=== PATIENT | male | born 1960 | race Caucasian/White ===

== ENCOUNTER 2018-12-24 23:33 | Emergency (ER) | payer BC, OTHER ==
[~2018-12-24] VITALS: Ht 185.4 cm; Wt 90.7 kg
[2018-12-25 01:13] LABS: Basophils # (auto) 0.1 uL; Basophils % (auto) 0.8 % (0.0-2.0); Eosinophils # (auto) 0.1 uL; Eosinophils % (auto) 1.4 % (0.0-7.0); Hematocrit 39.9 % (41.0-53.0); Lymphocytes # (auto) 2.2 uL; Lymphocytes % (auto) 22.5 % (10.0-50.0); Mean Corpuscular Hgb Conc. 35.1 g/dL (32.0-36.0); Mean Corpuscular Volume 85.6 fL (80.0-100.0); Monocytes # (auto) 0.8 uL; Monocytes % (auto) 7.8 % (0.0-12.0); Neutrophils # (auto) 6.6 uL; Neutrophils % (auto) 67.5 % (37.0-80.0); Platelet Count (auto) 231 10^3/uL (140-450); Red Blood Cells 4.66 10^6/uL (4.5-5.90); Red Cell Distribution Width 13.4 % (11.8-14.3); White Blood Cell 9.8 10^3/uL (4.4-10.8)
[2018-12-25 01:30] LABS: Albumin 3.9 g/dL (3.4-5.0); Calcium 8.3 mg/dL (8.5-10.1); Potassium 3.9 mmol/L (3.5-5.1)
[2018-12-25 01:32] LABS: BUN/Creatinine Ratio 33.7
[2018-12-25 01:34] LABS: Bilirubin, Total 0.6 mg/dL (0.2-1.0)
[2018-12-25 13:35] VITALS: BP 115/81
== END 2018-12-25 13:37 | disposition home or self-care (01) ==
LOC: EDBD 23:33 → ER 23:33
DX: K92.2 Gastrointestinal hemorrhage, unspecified (principal)
CPT/HCPCS: 36415; 74176; 80053; 82270; 85025; 86850; 86900; 86901